=== PATIENT | female | born 1955 | race Caucasian/White ===

== ENCOUNTER 2018-09-23 22:02 | Emergency (ER) | payer MEDICAID ==
[~2018-09-23] VITALS: Ht 157.5 cm; Wt 93.9 kg
[2018-09-23 22:22] VITALS: Ht 157.5 cm; Wt 93.9 kg
[2018-09-23 22:46] LABS: BASOPHIL % 0.7 % (0-2); PLATELET COUNT 246 x10^3mcL (130-400); RED CELL DISTRIBUTION WIDTH 13.3 % (11.5-14.5)
[2018-09-23 22:58] LABS: CALCIUM 9.4 mg/dL (8.5-10.1); CARBON DIOXIDE 27.5 mmol/L (21-32); CHLORIDE SERUM 101 mmol/L (98-107); CREATININE SERUM 0.9 mg/dL (0.6-1.0); GFR1 > 60 mL/min; GLUCOSE SERUM 149 mg/dL (74-106); POTASSIUM SERUM 3.5 mmol/L (3.5-5.1); SODIUM SERUM 139 mmol/L (136-145)
[2018-09-23 23:02] LABS: ALBUMIN 3.7 g/dL (3.4-5.0); ALKALINE PHOSPHATASE 84 U/L (46-116); ALT/SGPT 38 U/L (14-59); AST/SGOT 19 U/L (15-37); BILIRUBIN TOTAL 0.1 mg/dL (0.20-1.00)
[2018-09-24 01:34] VITALS: BP 109/59
== END 2018-09-24 01:34 | disposition home or self-care (01) ==
LOC: ED 22:02
PROVIDERS: Emergency Medicine
DX: L03.115 Cellulitis of right lower limb (principal); E11.9 Type 2 diabetes mellitus without complications
CPT/HCPCS: J2543; J3370; J7030; Q0092

== ENCOUNTER 2019-04-13 18:30 | Emergency (ER) | payer MEDICAID ==
[~2019-04-13] VITALS: Ht 160 cm; Wt 93.4 kg
[2019-04-13 19:59] VITALS: Ht 160 cm; Wt 93.4 kg
[2019-04-13 20:58] VITALS: BP 124/79
== END 2019-04-13 20:58 | disposition home or self-care (01) ==
LOC: ED 18:30
DX: J03.90 Acute tonsillitis, unspecified (principal); E78.00 Pure hypercholesterolemia, unspecified; K21.9 Gastro-esophageal reflux disease without esophagitis; E11.9 Type 2 diabetes mellitus without complications
CPT/HCPCS: J7512